=== PATIENT | female | born 1970 | race Caucasian/White ===

== ENCOUNTER 2017-04-26 20:00 | Emergency (ER) | payer SELFPAY ==
[2017-04-26 21:00] VITALS: RESP 16
--- NOTE | 2017-04-26 21:54 | C.PDOC ---
History Of Present Illness Patient with a Hx of hemorrhoids presents to the ER with a complaint of rectal pain and bleeding with bowel movement that began 1-2 days ago. Patient states she noticed blood on the toilet pain after having a bowel movement but not in the stool or toilet. Denies fever, chills, nausea, or vomiting. Time Seen by Provider: 04/26/17 21:53 Chief Complaint (Nursing): GI Problem History Per: Patient History/Exam Limitations: no limitations Onset/Duration Of Symptoms: Days Current Symptoms Are (Timing): Still Present Number Of Bleeding Episodes: Multiple: Amount of Blood Loss: Small Severity: Mild Pain Scale Rating Of: 4 Quality Of Discomfort: Unable To Describe Associated Symptoms: Rectal Bleeding. denies: Nausea, Vomiting Recent travel outside of the [place]: No Past Medical History Reviewed: Historical Data, Nursing Documentation, Vital Signs Vital Signs: Last Vital Signs Temp 98.4 F 04/26/17 20:55 Pulse 78 04/26/17 20:55 Resp 16 04/26/17 20:55 BP 118/83 04/26/17 20:55 Pulse Ox 100 04/26/17 22:35 - Medical History PMH: Anemia Surgical History: No Surg Hx Family History: States: Unknown Family Hx - Social History Hx Tobacco Use: No Hx Alcohol Use: Yes Hx Substance Use: No - Immunization History Hx Tetanus Toxoid Vaccination: No Hx Influenza Vaccination: No Hx Pneumococcal Vaccination: No Review Of Systems Constitutional: Negative for: Fever, Chills Gastrointestinal: Positive for: Rectal Pain (w/ bleeding). Negative for: Nausea , Vomiting, Abdominal Pain Physical Exam - Physical Exam Appears: Non-toxic Skin: Warm, Dry Oral Mucosa: Moist Chest: Symmetrical, No Tenderness Cardiovascular: Rhythm Regular Respiratory: No Rales, No Rhonchi, No Wheezing Gastrointestinal/Abdominal: Soft, No Tenderness Rectal: Maroon Stool, Hemorrhoids (two large nonthrombosed), Tenderness Back: No CVA Tenderness Extremity: Normal ROM Extremity: Bilateral: Atraumatic Neurological/Psych: Oriented x3, Normal Speech Additional Physical Exam Comments: Female RN present during physical exam. ED Course And Treatment O2 Sat by Pulse Oximetry: 100 (Room air) Pulse Ox Interpretation: Normal Reevaluation Time: 22:40 Reassessment Condition: Improved Disposition Counseled Patient/Family Regarding: Studies Performed, Diagnosis, Need For Followup, Rx Given - Disposition Referrals: [facility] [Outside] [facility] [Outside] Disposition: HOME/ ROUTINE Disposition Time: 21:54 Condition: FAIR Additional Instructions: Please return if symptoms recur Prescriptions: Hydrocortisone 2.5% (Rectal) [Anusol-HC] 30 applic AL BID #1 tube Polyethylene Glycol 3350 [Miralax] 17 gm PO DAILY #270 ml Instructions: Hemorrhoids (ED), Rectal Pain (ED) Forms: [employer] (Mongolian) - Clinical Impression Clinical Impression: Hemorrhoids - Scribe Statement The provider has reviewed the documentation as recorded by the Scribe Ebenezer Parikh All medical record entries made by the Scribe were at my direction and personally dictated by me. I have reviewed the chart and agree that the record accurately reflects my personal performance of the history, physical exam, medical decision making, and the department course for this patient. I have also personally directed, reviewed, and agree with the discharge instructions and disposition.
[2017-04-26 22:55] VITALS: BP 102/66; PULSE 74; TEMP 98.1; O2SAT 99
== END 2017-04-26 22:50 | disposition home or self-care (01) ==
LOC: C.ER 20:00
DX: K64.9 Unspecified hemorrhoids (principal)